=== PATIENT | female | born 2000 | race Two or more races ===

== ENCOUNTER 2025-02-03 08:09 | Emergency (ER) | payer BC, SELFPAY ==
[2025-02-03 08:16] VITALS: BP 123/84; PULSE 83; TEMP 36.8; O2SAT 99; BMI 28.3
--- NOTE | 2025-02-03 08:23 | XR_ITS ---
The [address] [address] Patient Name: AMANDA MIRANDA MRN: [id number] date: 2000 Sex: F Assigned Patient Location: ER Current Patient Location: ER Accession/Order Number: [id number] Exam Date: 02/03/2025 08:58 Report Date: 02/03/2025 09:02 At the request of: JOSE JOSEPH MD Procedure: XR hand RT min 3V RIGHT HAND - 3 views CLINICAL DATA: Patient fell yesterday and has pain near the first metacarpal phalangeal joint COMPARISON: None AP, lateral and oblique views were obtained. There is an extra tiny bony density adjacent to the sesamoids near the head of the first metatarsal which appears chronic. There is no definite acute fracture or dislocation. There are no significant soft tissue abnormalities. XR/XR hand RT min 3V IMPRESSION: NO ACUTE BONY INJURY. Impression dictated by: Angie Mcdermott M.D.02/03/2025 9:02 AM Dictation Location: [place] [address] Electronically authenticated by: [id number] Y Date: 02/03/2025 09:02
--- NOTE | 2025-02-03 08:25 | ED_ITS ---
HPI HPI - General Adult General Chief complaint: Extremity Injury, Upper Stated complaint: upper extremity injury Time Seen by Provider: 02/03/25 08:13 Source: patient Mode of arrival: walk-in Limitations: no limitations History of Present Illness HPI narrative: This 24-year-old female patient states she was walking her dog this morning around 4:30 AM when it ran away from her. She started chasing it and fell on the sidewalk injuring the right hand. She also landed on her knees but denies any obvious discomfort to her knees and has been able to ambulate normally. She denies any possibility of . No other area of injury is reported. Related Data Home Medications ?Medication ?Instructions ?Recorded ?Confirmed No Known Home Medications 02/03/25 02/03/25 Allergies Allergy/AdvReac Type Severity Reaction Status Date / Time No Known Drug Allergies Allergy Verified 02/03/25 08:16 Opioid HPI Opioid Management Most Recent Opioid Data: Last Pain Scale 5 02/03/25 08:21 02/03/25 Review of Systems ROS Status of ROS 10 or more systems reviewed and unremark able except as noted in history and below PFSH PFSH Social History Little interest or pleasure in doing things: not at all Feeling down, depressed, or hopeless: not at all Exam Narrative Exam Narrative: Patient is nondistressed. Vital signs are stable and are as documented. Focused examination of the musculoskeletal system is carried out. The head and neck are atraumatic. Patient has a soft tissue bruise over the thenar eminence of the right hand with some underlying tenderness. She is also tender to palpation over the IP joint of the thumb. The right wrist is atraumatic and has full range of motion. No obvious bony deformity is appreciated in the right hand. Both knees were then examined and there is a very superficial small bruise over the tibial tubercle of the right knee. No other bruising or abrasions are noted and she has full range of motion in both knees. The rest of her bony survey of the extremities is negative. Skin is warm and dry. Constitutional Vital Signs, click to edit/add: Last Vital Signs Temp 98.2 F 02/03/25 08:16 Pulse 83 02/03/25 08:16 Resp 18 02/03/25 08:16 BP 123/84 02/03/25 08:16 Pulse Ox 99 02/03/25 08:16 Course Vital Signs Vital signs: Vital Signs Temperature 98.2 F 02/03/25 08:16 Pulse Rate 83 02/03/25 08:16 Respiratory Rate 18 02/03/25 08:16 Blood Pressure 123/84 02/03/25 08:16 Pulse Oximetry 99 02/03/25 08:16 Temperature 98.2 F 02/03/25 08:16 Pulse Rate 83 02/03/25 08:16 Respiratory Rate 18 02/03/25 08:16 Blood Pressure 123/84 02/03/25 08:16 Pulse Oximetry 99 02/03/25 08:16 Medical Decision Making MDM Narrative Medical decision making narrative: Patient presents with injury to right hand from a fall. There is some bruising over the thenar eminence. X-rays do not show any fracture. She is discharged with supportive care advised and may return anytime for worsening symptoms. Discharge Plan Discharge Chief Complaint: Extremity Injury, Upper Clinical Impression: Contusion of hand Patient Disposition: Home, Self-Care Time of Disposition Decision: 09:07 Mode of Transportation: Private Vehicle Prescriptions / Home Meds: No Action No Known Home Medications Print Language: Greenlandic Instructions: Contusion in Adults (ED) Additional Instructions: Ice. Ibuprofen for pain as needed. Return for worsening symptoms. Referrals: Physician,Non-Staff, MD [Primary Care Provider] - 1 week
[2025-02-03 09:21] VITALS: BP 126/86; PULSE 88; O2SAT 98
== END 2025-02-03 09:21 | disposition home or self-care (01) ==
PROVIDERS: Emergency Provider Emergency Medicine
DX: S60.221A Contusion of right hand, initial encounter (principal); W18.39XA Other fall on same level, initial encounter
CPT/HCPCS: 73130; 99283

== ENCOUNTER 2025-09-13 03:53 | Emergency (ER) | payer BC, SELFPAY ==
[2025-09-13 04:09] VITALS: BP 113/79; PULSE 67; TEMP 36.6; O2SAT 98; BMI 28.3
--- NOTE | 2025-09-13 04:23 | PC.NURSE ---
Ring stuck on right hand third finger, skin is pink and warm. Ring removed using ring cutter without difficulty.
--- NOTE | 2025-09-13 04:27 | ED.GENADUL1 ---
HPI HPI - General Adult General Chief complaint: Recheck/Abnormal Lab/Rx Stated complaint: UNABLE TO REMOVE RING - RMF Time Seen by Provider: 09/13/25 04:23 Source: patient History of Present Illness HPI narrative: patient has eczema. states when it flares up her hand and fingers will swelling. Not able to remove right from right middle finger for a couple of days and now presents to the ER to have the ring removed Related Data Home Medications ?Medication ?Instructions ?Recorded ?Confirmed No Known Home Medications 02/03/25 02/03/25 Allergies Allergy/AdvReac Type Severity Reaction Status Date / Time No Known Drug Allergies Allergy Verified 09/13/25 04:08 Opioid HPI Opioid Management Most Recent Opioid Data: Last Pain Scale 5 02/03/25, 08:21 Review of Systems ROS Status of ROS 10 or more systems reviewed and unremarkable except as noted in history and below PFSH PFS Social History Little interest or pleasure in doing things: not at all Feeling down, depressed, or hopeless: not at all Exam Constitutional Vital Signs, click to edit/add: Last Vital Signs Temp 97.9 F 09/13/25 04:09 Pulse 67 09/13/25 04:09 Resp 20 09/13/25 04:09 BP 113/79 09/13/25 04:09 Pulse Ox 98 09/13/25 04:09 O2 Del Method Room Air 09/13/25 04:09 Common normals: no apparent distress, average body habitus, oriented x3, no limitations, healthy appearing, alert and well nourished Eye Common normals: EOMs intact bilaterally and conjunctivae normal Respiratory Common normals: normal respiratory effort, no retractions, no use of accessory muscles and clear to auscultation bilaterally Cardio Common normals: regular rate, regular rhythm, S1 normal heart sound and S2 normal heart sound Extremity Other: mild swelling of her fingers. ring tight RMF Neuro Common normals: oriented x3, CN's II-XII intact bilaterally, moves all extremities and no focal motor deficits Psych Appearance: grossly normal Course Vital Signs Vital signs: Vital Signs Temperature 97.9 F 09/13/25 04:09 Pulse Rate 67 09/13/25 04:09 Respiratory Rate 20 09/13/25 04:09 Blood Pressure 113/79 09/13/25 04:09 Pulse Oximetry 98 09/13/25 04:09 Oxygen Delivery Method Room Air 09/13/25 04:09 Temperature 97.9 F 09/13/25 04:09 Pulse Rate 67 09/13/25 04:09 Respiratory Rate 20 09/13/25 04:09 Blood Pressure 113/79 09/13/25 04:09 Pulse Oximetry 98 09/13/25 04:09 Oxygen Delivery Method Room Air 09/13/25 04:09 Medical Decision Making MDM Narrative Medical decision making narrative: patient presents with tight ring on RMF. Nursing able to cut and remove the ring without incident and patient discharged home in improved condition Discharge Plan Discharge Chief Complaint: Recheck/Abnormal Lab/Rx Clinical Impression: Tight ring on finger Patient Disposition: Home, Self-Care Prescriptions / Home Meds: No Action No Known Home Medications Print Language: Grenadian Instructions: Swollen Joint (ED) Referrals: Physician,Non-Staff, MD [Primary Care Provider] - 1 week
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
--- OUTSIDE RECORDS SUMMARY | 2025-09-13 04:38 | XMS_ITS | Clinical Summary ---
Author Organization [facility] Address [address], [address] [place] [address] Care Team Providers Care Group Home Worker Name Role Phone Miah Erickson MD Primary Care Provider [phone] Allergies No known active allergies Medications MedicationSigDispense QuantityRefillsLast FilledStart DateEnd DateStatus norgestimate-ethinyl estradiol (ORTHO-CYCLEN, 28,) 0.25-35 MG-MCG per tablet Indications:Irregular menstrual cycleTake 1 tablet by mouth daily 1 packet 12006/14/2022ctive Additional Information Patient not taking.Reported on 08/08/2023 Hnvrmzhuqhvowgr-CI-HV 60-15-400 MG TABS Take 1 tablet by mouth every 6 hours as needed (cough congestion) 28 tablet 08/10/2023ctive Active Problems No known active problems Family History RelationNameStatusCommentsFatherAliveMotherAlive Social History Tobacco UseTypesPacks/DayYears UsedDateSmoking Tobacco: NeverSmokeless Tobacco: Never Tobacco Cessation:Counseling Given: Not Answered Alcohol UseStandard Drinks/WeekCommentsNo0 (1 standard drink = 0.6 oz pure alcohol)AUDIT-CAnswerDate RecordedQ1: How often do you have a drink containing alcohol?Never08/10/2023Q2: How many drinks containing alcohol do you have on a typical day when you are drinking?Patient does not drink08/10/2023Q3: How often do you have six or more drinks on one occasion?Never08/10/2023Overall Financial Resource Strain (CARDIA)AnswerDate RecordedHow hard is it for you to pay for the very basics like food, housing, medical care, and heating?Not hard at all 05/20/2022HQ-2AnswerDate RecordedPHQ-9 Total Mpyjc959Hunger Vital Sign AnswerDate RecordedWithin the past 12 months, you worried that your food would run out before you got the money to buymore.Never true05/20/2022Within the past 12 months, the food you bought just didn't last and you didn't have money to get more.Never true05/20/2022Interpersonal Safety Domain Source: IP Abuse Screening AnswerDate RecordedRead-Only, Retired: Physical RtkagOndkth04/19/2023Read-Only, Retired: Verbal LwbkjPcykjf79/19/2023Read-Only, Retired: Emotional abuseDenies 08/10/2023Read-Only, Retired: Financial QyltaCivygt42/19/2023Read-Only, Retired: Sexual ijrhwVlluid48/19/2023CommentsNoSex and Gender InformationValue Date RecordedSex Assigned at BirthNot on fileLegal KbiCrnxfq44/10/2013 4:23 PM ESTGender IdentityNot on fileSexual OrientationNot on file Last Filed Vital Signs Vital SignReadingTime TakenCommentsBlood Sbxuwwxb553/7908/10/2023 3:36 AM EDT Rnadm806108/10/2023 3:36 AM DKADhdnvuhwenb22.3 ??C (99.1 ??F)08/10/2023 3:36 AM EDTRespiratory Mtla4929 3:36 AM EDTOxygen Xkoswdovqf433%08/10/2023 3:36 AM EDTInhaled Oxygen Concentration--Vhzyea29.3 kg (132 lb 14.4 oz)08/10/2023 3:36 AM ACKWllguy061 cm (5' 3 )08/10/2023 3:36 AM EDTBody Mass Index23.54 08/10/2023 3:36 AM EDT Plan of Treatment Health MaintenanceDue DateLast DoneCommentsDepression Cflvho2002/15/2014Varicella vaccine (1 of 2 - 13+ 2-dose series)2015HIV fdqjxn3202/15/2017HPV vaccine (1 - 3-dose series)2017Chlamydia/GC xgaqed1602/15/2018Meningococcal B vaccine (1 of 2 - Standard)2018Hepatitis C fvwxfo4202/16/2020DTaP/Tdap/Td vaccine (1 - Tdap)2021Hepatitis B vaccine (1 of 3 - 19+ 3-dose series)1Pap smear2023Flu vaccine (#1)05/23/2025OVID-19 Vaccine ( - season) 2025Hepatitis A vaccineAged OutNo longer eligible based on patient's age to complete this topicHib vaccineAged OutNo longer eligible based on patient's age to complete this topicMeningococcal (ACWY) vaccineAged OutNo longer eligible based on patient's age to complete this topicPneumococcal 0-49 years VaccineAged OutNo longer eligible based on patient's age to complete this topicPolio vaccine Aged OutNo longer eligible based on patient's age to complete this topic Insurance Care Teams Team MemberRelationshipSpecialtyStart DateEnd Date Miah Erickson MD [address] [place], [place] [id number] PCP - GeneralInternal Medicine05/20/22
== END 2025-09-13 05:01 | disposition home or self-care (01) ==
PROVIDERS: Emergency Provider Internal Medicine
DX: R22.31 Localized swelling, mass and lump, right upper limb (principal); W49.04XA Ring or other jewelry causing external constriction, initial encounter
CPT/HCPCS: 99282